=== PATIENT | male | born 1965 | race Caucasian/White ===

== ENCOUNTER 2023-12-17 09:00 | Outpatient (RCR) | payer BC | END 2024-01-09 | disposition home or self-care (01) | LOC: CARDREHAB | DX: Z48.812 Encounter for surgical aftercare following surgery on the circulatory system (principal); Z95.2 Presence of prosthetic heart valve; Z95.1 Presence of aortocoronary bypass graft ==

== ENCOUNTER 2024-02-11 08:00 | Outpatient (RCR) | payer BC | END 2024-03-10 | disposition home or self-care (01) | LOC: CARDREHAB | DX: Z48.812 Encounter for surgical aftercare following surgery on the circulatory system (principal); Z95.1 Presence of aortocoronary bypass graft; Z95.2 Presence of prosthetic heart valve; Z87.891 Personal history of nicotine dependence ==

== ENCOUNTER 2024-03-12 08:33 | Outpatient (RCR) | payer BC | END 2024-04-10 | disposition home or self-care (01) | LOC: CARDREHAB | DX: Z48.812 Encounter for surgical aftercare following surgery on the circulatory system (principal); Z95.2 Presence of prosthetic heart valve ==